=== PATIENT | female | born 2000 | race Caucasian/White ===

== ENCOUNTER 2020-03-31 19:30 | Inpatient (IN) ==
[2020-03-31] MEDS ORDERED: SODIUM CHLORIDE 0.9% 1000ML 1,000 ML IV ONE (20:44)
[2020-03-31 21:05] LABS: Basophils # (auto) 0.07 K/uL (0-0.2); Basophils % (auto) 0.9 %; Eosinophils # (auto) 0.35 K/uL (0-0.5); Eosinophils % (auto) 4.7 %; Hematocrit (blood only) 36.5 % (37-47); Immature Granulocytes # (auto) 0.01 K/uL (0.00-0.02); Immature Granulocytes % (auto) 0.1 %; Lymphocytes # (auto) 1.91 K/uL (1.2-3.4); Lymphocytes % (auto) 25.8 %; Mean Corpuscular Hemoglobin 24.5 pg (25-34); Mean Corpuscular Hgb Conc 32.9 g/dL (32-36); Mean Corpuscular Volume 74.6 fL (80-100); Mean Platelet Volume 10.6 fL (7.4-10.4); Monocytes # (auto) 0.84 K/uL (0.11-0.59); Monocytes % (auto) 11.3 %; Neutrophils # (auto) 4.23 K/uL (1.4-6.5); Neutrophils % (auto) 57.2 %; Platelet Count 227 K/uL (130-400); RDW Standard Deviation 38.1 fL (36.4-46.3); Red Blood Count 4.89 M/uL (4.2-5.4); White Blood Count 7.41 K/uL (4.8-10.8)
[2020-03-31 21:10] LABS: Appearance Urine Clear (Clear); Bacteria Urine Automated 2+ (Negative); Bilirubin Urine Negative (Negative); Blood Urine Negative (Negative); Color Urine Yellow; Epithelial Cell Urine Auto >30 /lpf (0-5); Glucose Urine UA Negative (Negative); Ketones Urine Trace (Negative); Leukocyte Esterase Urine Trace (Negative); Nitrite Urine Negative (Negative); RBC Urine Automated 0-4 /hpf (0-4); Specific Gravity Urine 1.028 (1.000-1.030); Urobilinogen Urine Negative (Negative); pH Urine 7.5 (4.5-7.5)
[2020-03-31 21:18] LABS: Protein Urine Negative (Negative); Sulfosalicylic Acid Urine Negative (Negative)
[2020-03-31 21:21] LABS: Albumin Level 3.9 gm/dl (3.4-5.0); BUN Creatinine Ratio 13.2 (10-20); Calcium 9.2 mg/dl (8.5-10.1); Creatinine Clr Calc Pharmacy 78.2 ml/min; Est GFR (African American) 105.9; Est GFR (Non-African American) 91.4; Potassium 3.2 mmol/L (3.5-5.1)
[2020-03-31 21:23] LABS: Bilirubin,Total 0.4 mg/dl (0.2-1); Globulin 4.1 gm/dl (2.5-4.0)
[2020-03-31 22:23] LABS: RBC Morphology Unremarkable
--- NOTE | 2020-03-31 23:18 | Emergency Department Note ---
Impression & Plan Abdominal pain, Constipation ED Provider Note NAME: DIANA SHELTON AGE: 19 SEX: F : 2000 ARRIVES VIA: Walk-In INFORMANT: Patient, ED PROVIDER(S): Raj Knox MD Chief Complaint: Abdominal pain, constipation HPI: Present concern for abdominal pain and constipation. The patient does have a known history of Crohn's disease status post partial colectomy and small bowel removal years ago. The patient is currently on Stelara. Patient states that she did notice some blood in the stool proximate 2 days prior and she has had increasing difficulty with having a full bowel movement. The patient did call the GI office today spoke with Lyric Gonzales the patient was advised on 2 separate occasions during 2 separate phone calls to take NSAID MiraLAX mag citrate as well as fiber supplement. Patient states that she did have some overflow diarrheal type symptoms but denied having a solid bowel movement to where she felt improved. The patient's pain is been somewhat crampy and lower. Patient denies any dysuria or hematuria. The patient does not take any blood thinning medications. Patient denies fevers, chills, chest pains, shortness of breath. Patient has had some mild nausea but without vomiting. LMP was approximately several weeks ago. No current vaginal bleeding or discharge. ROS: See HPI for pertinent positives and negatives. A total of 10 systems were reviewed and otherwise negative. Past medical history: See below Surgical history: See below Social history: See below Physical Exam: GENERAL: Wearing a mask. NAD, non-toxic. EYE EXAM: Normal conjunctiva. PERRL, no anisocoria and EOM's grossly intact w/o pain. NECK: Supple, no nuchal rigidity, no adenopathy, non-tender. No signs of meningismus. LUNGS: Clear to auscultation. Normal chest wall mechanics. HEART: NSR, no MRG. ABDOMEN: Abdomen soft, mild abdominal discomfort in the lower abdomen but without peritonitis, normo-active bowel sounds, no masses, no rebound or guarding. BACK: No CVA TTP. SKIN: No rashes and no bruising. UPPER EXTREMITIES: Upper extremities are grossly normal. LOWER EXTREMITIES: Grossly normal, no edema. NEURO EXAM: A&O x3, cranial nerves II-XII grossly intact, normal speech, moves all 4 extremities on command w/o issue. Differential diagnoses: Appendicitis, ovarian cyst, ovarian torsion, ectopic , TOA, PID, infections, diverticulitis, UTI, obstruction, mesenteric ischemia, aortic pathology, inflammatory bowel disease, renal colic, PUD, pancreatitis, biliary pathology, hernia, volvulus, constipation, as well as other pathologies. Course: Patient was seen and evaluated the bedside. Full history physical exam was performed. EKG: None Imaging Studies: Radiology results as stated below per my review in the radiologist's interpretation: ABDOMEN AND PELVIS CT WITH IV AND ORAL CONTRAST CT DOSE: 281.98 mGy.cm HISTORY: Acute right lower quadrant abdominal pain. History of Crohn's disease. crohn's flare, ab pain TECHNIQUE: Multiaxial CT images of the abdomen and pelvis were performed following the IV administration of 93 cc of Optiray 320 and oral contrast. A dose lowering technique was utilized adhering to the principles of ALARA. COMPARISON STUDY: CT enterography 07/01/2019 FINDINGS: Clear lung bases. No pneumatosis or pneumoperitoneum. The imaged i nferior cardiac chambers are unremarkable. The spleen, pancreas, adrenal glands, gallbladder and liver appear unremarkable. There is patency of the hepatic and portal veins. Kidneys are unremarkable. There is mild urinary bladder distention. Unremarkable uterus and adnexa. Aorta and IVC are unremarkable. No adenopathy. No bowel obstruction. Large amount of stool of the rectum which is distended t ransversely measuring up to 9.5 cm. Mild associated rectal wall thickening with mild perirectal stranding. Mild to moderate distention of the colon which measures up to 7.2 cm within the ascending colon. Postoperative changes of ileocecectomy with ileocolic anastomosis. Prominent lymph nodes of the right lower quadrant mesentery measuring up to 10 x 8 mm are likely reactive. No small bowel wall thickening, fistula or sinus tract. Soft tissues are unremarkable. Bones appear intact. IMPRESSION: 1. Interval postoperative changes of ileocecectomy with ileocolic anastomosis. No small bowel wall thickening, fistula or sinus tract. 2. Extensive fecal retention of the rectum resulting in rectal distention with rectal wall thickening and mild perirectal stranding, suspicious for stercoral proctitis. Additionally, there is mild to moderate distention of the large bowel. 3. No pneumoperitoneum. 4. Mildly prominent lymph nodes of the right lower quadrant mesentery, likely reactive. ACT 112: Negative or not required by law. The above report was generated using voice recognition software. It may contain grammatical, syntax or spelling errors. Electronically signed by: Jovanny Rae M.D. 04/01/2020 7:52 AM Dictated: 04/01/20742 Transcribed: 04/01/20742 Cardiac monitoring: An order was placed for continuous cardiac monitoring. The monitor shows a rate of 71 with sinus rhythm. MDM: She did present with concern for difficulty with having a bowel movement given the patient's prior history of Crohn's as well as surgery the patient did have blood work completed along with a CT of the abdomen pelvis with IV and p.o. contrast. White count and hemoglobin and platelet count is unremarkable. The patient's kidney function is unremarkable. Urinalysis does show bacteria but only there is likely contaminated sample as patient does not have nitrates or WBCs and the patient does not complain of any urinary symptoms. The patient CT does not show any inflammatory changes and no pneumoperitoneum but significant fecal retention. The patient was offered an enema which the patient did use along with some Anusol. The patient did have a bowel movement the patient's felt mildly improved but still concerned about the possibility of having a full bowel movement. I had spoken with Dr. Mitchell DO with gastroenterology who stated that they would be happy to see her in-house or as an outpatient where they could call the office later today. I did speak with the on-call hospitalist Dr. Naga DO and the patient was admitted to the medicine service. Past Med/Surg History Medical History Asthma exercise induced--inhaler prn Crohns disease Hypertension hx of; no meds Surgical History History of colectomy 08/14/2019 @ [facility] [place] History of colonoscopy History of esophagogastroduodenoscopy (EGD) History of tooth extraction Status post myringotomy with tube placement of both ears x2 Family History Father Colorectal cancer Ulcerative colitis Uncle Colorectal cancer Other No family history of adverse response to anesthesia Social History Smoking Status: Never smoker Second Hand Exposure: No; Hx Alcohol Use: No Hx Substance Use: No Preferred Language: Yoruba Communication Ability: Effective Certified Medical Transcriptionist Required: No Beliefs That Will Affect Care: None Current Living Situation: Other Current Living Situation Comment: Apartment with two roomates Feels Safe at Home: Yes Assistive Devices: None Allergies Allergies Allergy/AdvReac Type Severity Reaction Status Date / Time peanut Allergy Severe Anaphylaxis Verified 03/31/20 21:57 chickpeas Allergy Severe lip Uncoded 03/31/20 21:57 swelling green peas Allergy Severe Anaphylaxis Uncoded 03/31/20 21:57 Home Meds Home Medications Medication Instructions Recorded Confirmed albuterol sulfate 90 mcg/actuation 1 puffs INH Q6H PRN 01/31/19 03/31/20 aerosol inhaler hydrochlorothiazide 25 mg PO QAM 02/17/20 03/31/20 bisacodyl 5 mg PO DAILY PRN 03/31/20 03/31/20 Previous Rx's Medication Instructions Recorded ustekinumab 90 mg/mL subcutaneous 90 mg SQ Q8WK #1 ml 11/25/19 syringe docusate sodium 100 mg PO BID #60 cap 04/01/20 polyethylene glycol 3350 [Miralax] 17 g PO TID #0 g 04/01/20 Results & Data (ED) Vital Signs Vital Signs - 24 hr 03/31/20 19:32 03/31/20 20:57 03/31/20 22:22 Temperature 37.5 C Temperature Source Oral Pulse Rate 95 H Pulse Rate [Right Finger] 77 Pulse Rhythm [Right Finger] Regular Respiratory Rate 18 16 Respiratory Effort / Characteristics Non-Labored Spontaneous Non-Labored Spontaneous Respiratory Depth Normal Normal Blood Pressure 162/115 H Blood Pressure [Right Arm] 138/99 Blood Pressure Mean 130 Blood Pressure Mean [Right Arm] 112 Pulse Oximetry 99 99 99 Oxygen Delivery Method Room Air Room Air Room Air Sepsis Recent Fever Within 48 Hours No Sepsis New/Unexplained Change in Mental Status N/A Sepsis Action Taken by Nursing No Action Required 03/31/20 23:22 04/01/20 00:58 04/01/20 02:41 Temperature Temperature Source Pulse Rate Pulse Rate [Right Finger] 62 64 65 Pulse Rhythm [Right Finger] Respiratory Rate 18 16 16 Respiratory Effort / Characteristics Respiratory Depth Blood Pressure Blood Pressure [Right Arm] 165/102 H 128/76 135/84 Blood Pressure Mean Blood Pressure Mean [Right Arm] 123 93 101 Pulse Oximetry 96 99 98 Oxygen Delivery Method Room Air Room Air Room Air Sepsis Recent Fever Within 48 Hours Sepsis New/Unexplained Change in Mental Status Sepsis Action Taken by [facility] Medications Current Medication List: was personally reviewed by me Laboratory Data Attestation: I reviewed the patient's lab results. Result diagrams: 03/31/20 20:48 03/31/20 20:48 Lab Results 03/31/20 03/31/20 03/31/20 Range/Units 20:48 20:48 20:50 WBC 7.41 (4.8-10.8) K/uL RBC 4.89 (4.2-5.4) M/uL Hgb 12.0 (12.0-16.0) g/dL Hct 36.5 L (37-47) % MCV 74.6 L (80-100) fL MCH 24.5 L (25-34) pg MCHC 32.9 (32-36) g/dL RDW Std Deviation 38.1 (36.4-46.3) fL RDW Coeff of Adair 14.0 (11.5-14.5) % Plt Count 227 (130-400) K/uL MPV 10.6 H (7.4-10.4) fL Immature Gran % (Auto) 0.1 % Neut % (Auto) 57.2 % Lymph % (Auto) 25.8 % [place] % (Auto) 11.3 % Eos % (Auto) 4.7 % Baso % (Auto) 0.9 % Neut # (Auto) 4.23 (1.4-6.5) K/uL Lymph # (Auto) 1.91 (1.2-3.4) K/uL [place] # (Auto) 0.84 H (0.11-0.59) K/uL Eos # (Auto) 0.35 (0-0.5) K/uL Baso # (Auto) 0.07 (0-0.2) K/uL Immature Gran # (Auto) 0.01 (0.00-0.02) K/uL RBC Morphology Unremarkable Sodium 137 (136-145) mmol/L Potassium 3.2 L (3.5-5.1) mmol/L Chloride 103 (98-107) mmol/L Carbon Dioxide 27 (21-32) mmol/L Anion Gap 6.0 (3-11) BUN 12 (7-18) mg/dl Creatinine 0.90 (0.6-1.2) mg/dl Est Cr Clr Drug Dosing 78.2 ml/min Est GFR ( Amer) 105.9 Est GFR (Non-Af Amer) 91.4 BUN/Creatinine Ratio 13.2 (10-20) Glucose 84 (70-99) mg/dl Calcium 9.2 (8.5-10.1) mg/dl Phosphorus 3.5 (2.5-4.9) mg/dl Magnesium 2.4 (1.8-2.4) mg/dl Total Bilirubin 0.4 (0.2-1) mg/dl AST 17 (15-37) U/L ALT 20 (12-78) U/L Alkaline Phosphatase 52 (45-117) U/L Total Protein 8.0 (6.4-8.2) gm/dl Albumin 3.9 (3.4-5.0) gm/dl Globulin 4.1 H (2.5-4.0) gm/dl Albumin/Globulin Ratio 1.0 (0.9-2) Lipase 190 (73-393) U/L Urine Color Yellow Urine Appearance Clear (Clear) Urine pH 7.5 (4.5-7.5) Ur Specific [place] 1.028 (1.000-1.030) Urine Protein Negative (Negative) Urine Glucose (UA) Negative (Negative) Urine Ketones Trace H (Negative) Urine Blood Negative (Negative) Urine Nitrite Negative (Negative) Urine Bilirubin Negative (Negative) Urine Urobilinogen Negative (Negative) Ur Leukocyte Esterase Trace H (Negative) Urine WBC (Auto) 1-5 (0-5) /hpf Urine RBC (Auto) 0-4 (0-4) /hpf U Hyaline Cast (Auto) 5-10 H (0-5) /lpf U Epithel Cells (Auto) >30 H (0-5) /lpf Urine Bacteria (Auto) 2+ H (Negative) Administered Medications Discontinued Medications Dicyclomine HCl (Dicyclomine Hcl 10 Mg/Ml 2 Ml Amp/Vial) 20 mg IM NOW ONE Stop: 04/01/20 02:50 Last Admin: 04/01/20 02:59 Dose: 20 mg Documented by: [id number] Hydrochlorothiazide (Hydrochlorothiazide 25 Mg Tab) 25 mg PO QAM [place] Stop: 05/01/20 08:59 Last Admin: 04/01/20 08:33 Dose: 25 mg Documented by: [id number] Hydrocortisone (Hydrocortisone Acetate 25 Mg Supp) 25 mg MA ONE STA Stop: 04/01/20 01:37 Last Admin: 04/01/20 02:08 Dose: Not Given Documented by: [id number] Hydrocortisone (Hydrocortisone Hc 2.5% Crm 30gm Tube) 1 appln EXT NOW ONE Stop: 04/01/20 01:40 Last Admin: 04/01/20 01:45 Dose: 1 appln Documented by: [id number] Sodium Chloride (Nss 1000ml) 1,000 mls @ 999 mls/hr IV .Q1H1M ONE Stop: 03/31/20 21:44 Last Infusion: 03/31/20 21:55 Dose: 0 mls/hr Documented by: [id number] Admin: 03/31/20 20:54 Dose: 999 mls/hr Documented by: [id number] Sodium Chloride (Nss) 500 mls @ 100 mls/hr IV .Q5H [place] Stop: 05/01/20 02:59 Last Infusion: 04/01/20 07:21 Dose: 0 mls/hr Documented by: [id number] Admin: 04/01/20 02:59 Dose: 100 mls/hr Documented by: [id number] Sodium Chloride (Nss 1000ml) 1,000 mls @ 125 mls/hr IV .Q8H [place] Stop: 04/01/20 13:27 Last Admin: 04/01/20 06:07 Dose: 125 mls/hr Documented by: [id number] Ioversol (Ioversol 100ml) 100 ml IV ONCE ONE Stop: 04/01/20 00:10 Last Admin: 04/01/20 00:09 Dose: 93 ml Documented by: [id number] Ondansetron HCl (Ondansetron Inj 2 Mg/Ml 2 Ml Vial) 4 mg IV NOW STA Stop: 04/01/20 02:50 Last Admin: 04/01/20 05:27 Dose: Not Given Documented by: [id number] Potassium Chloride (Potassium Chloride 20 Meq Tabcr) 40 meq PO NOW STA Stop: 04/01/20 05:29 Last Admin: 04/01/20 08:33 Dose: 40 meq Documented by: [id number] Discharge Plan Visit Data Chief Complaint: Abdominal Pain Stated Complaint: ABD PAIN - CROHNS ED Provider: Raj Knox Discharge Problem: Abdominal pain, Constipation Patient Disposition: Admitted As Inpatient Condition: Good Discharge Instructions Interventions: ED Discharge Assessment Last Done: 04/01/20 05:02 Discharge Problem: Abdominal pain Qualifiers: Abdominal location: lower abdomen, unspecified Qualified Code(s): R10.30 - Lower abdominal pain, unspecified Constipation Qualifiers: Constipation type: unspecified constipation type Qualified Code(s): K59.00 - Constipation, unspecified
[2020-04-01] MEDS ORDERED: IOVERSOL 100ml IV ONE (00:09)
[2020-04-01] MEDS ORDERED: HYDROCORTISONE ACETATE 25 MG SUPP PR STA (01:36)
[2020-04-01] MEDS ORDERED: HYDROCORTISONE HC 2.5% CRM 30GM TUBE EXT ONE (01:39)
[2020-04-01] MEDS ORDERED: ONDANSETRON INJ 2 MG/ML 2 ML VIAL IV STA (02:49)
[2020-04-01] MEDS ORDERED: DICYCLOMINE HCL 10 MG/ML 2 ML AMP/VIAL IM ONE (02:49)
[2020-04-01] MEDS ORDERED: SODIUM CHLORIDE 0.9% 500 ML IV SCH (03:00)
--- NOTE | 2020-04-01 04:36 | History & Physical Report ---
Date of Service April 01, 2020 Assessment & Plan (1) Constipation: 19yo C female with history of Crohns disease, chronic constipation presenting with rectal pain, constipation. Symptoms mildly improved with enema provided in ER. CT with notable constipation. No evidence of acute Crohns flare. Patient afebrile, HD stable, no leukocytosis -Admit to medical floor -IVF and electrolyte repletion as needed -Continue bowel regimen - Dulcolax KS, Colace PO, Miralax PRN -Repeat enema if needed -GI consultation appreciated - patient is known to Dr. Velez and GI team -Zofran PRN nausea Present on Admission?: Yes (2) Hypertension: Blood pressure elevated upon arrival, now improved -Continue HCTZ 25mg po q daily -Continue to monitor Present on Admission?: Yes (3) Crohns disease: Chronic. Patient follows with GI -Stelara injection q 8 weeks. Patient is due for injection in 2 days -GI followup outpatient F/E/N - NSS at 125mL/hr x 1 liter, K repletion, check Mg and PO4 x 1, Regular diet as tolerated PPx - Low risk for DVT Code - Full Dispo - Admit to medical Present on Admission?: Yes History of Present Illness Chief Complaint: Abdomninal pain Primary Care Provider: Blaise Rodríguez MD Brandy Briggs is a pleasant 19yo C female with history of Crohns disease s/p partial colectomy, asthma, HTN presenting with abdominal pain, constipation. Symptoms began 2 days ago, constipation and blood passing per rectum. Patient has rectal pain and pressure, painful BM. She denies fevers, chills, body aches. Denies diarrhea, nausea and vomiting. No additional complaints at this time. Patient contacted her GI providers and was instructed to increase her bowel regimen - Colace, Fiber and magnesium citrate recommended. Patient did so with minimal improvement in symptoms. Enema administered in ER with some improvement ER course: NSS x 1500mL, Dicyclomine 20mg IM, Hydrocortisone external Allergies Allergy/AdvReac Type Severity Reaction Status Date / Time peanut Allergy Severe Anaphylaxis Verified 03/31/20 21:57 chickpeas Allergy Severe lip Uncoded 03/31/20 21:57 swelling green peas Allergy Severe Anaphylaxis Uncoded 03/31/20 21:57 Home Medications Home Medications Medication Instructions Recorded Confirmed Type albuterol sulfate 90 mcg/actuation 1 puffs INH Q6H PRN 01/31/19 03/31/20 History aerosol inhaler polyethylene glycol 3350 [Miralax] 17 g PO DAILY PRN 06/16/19 03/31/20 History ustekinumab 90 mg/mL subcutaneous 90 mg SQ Q8WK #1 ml 11/25/19 03/31/20 Rx syringe hydrochlorothiazide 25 mg PO QAM 02/17/20 03/31/20 History bisacodyl 5 mg PO DAILY PRN 03/31/20 03/31/20 History Past Med/Surg History Medical History Asthma exercise induced--inhaler prn Crohns disease Hypertension hx of; no meds Surgical History History of [place]lectomy 08[place]14[place]2019 [place] [facility] [place] History of colonoscopy History of esophagogastroduodenoscopy (EGD) History of tooth extraction Status post myringotomy with tube placement of both ears x2 Family History Father Colorectal cancer Ulcerative colitis Uncle Colorectal cancer Other No family history of adverse response to anesthesia Social History Smoking Status: Never smoker Second Hand Exposure: No; Hx Alcohol Use: Yes Alcohol type: hard liquor Hx Substance Use: No Preferred Language: Slovak Communication Ability: Effective Foundry Supervisor Required: No Beliefs That Will Affect Care: None Current Living Situation: Other Current Living Situation Comment: Lives with 2 roommates--[place] [employer] Student Feels Safe at Home: Yes Assistive Devices: None Review of Systems Review of Systems: All systems reviewed & are unremarkable except as noted in HPI & below Physical Exam Physical Exam: General: patient resting comfortably, NAD, non-toxic in appearance, AA&O x 4 Skin: warm, dry, intact, no rashes or lesions HEENT: NC/AT, PERRL, EOMI, anicteric sclera, conjunctiva without injection, external ear normal to inspection and nontender, nares patent, moist mucus membranes, dentition intact, no oropharyngeal lesions, neck supple, trachea midline, no LAD, no thyromegaly, no JVD Heart: +S1/S2, regular, no m/r/g Lungs: equal air entry bilaterally, no rales/rhonchi/wheezes Abd: +BS, soft, NT/ND, no masses/organomegaly/ascites Ext: warm, 2+ pulses in UE/LE bilaterally, no clubbing/cyanosis or edema Neuro: nonfocal, patient AA&O x 4, speech intact, no facial droop, moving all extremities on command with equal strength 5/5 Results & Data Results & Data ([facility]) Vital Signs (Past 12 Hours) Vital Signs Temp Pulse Pulse Resp BP BP Pulse Ox 04/01/20 02:41 65 16 135/84 98 04/01/20 00:58 64 16 128/76 99 03/31/20 23:22 62 18 165/102 H 96 03/31/20 22:22 77 16 138/99 99 03/31/20 20:57 99 03/31/20 19:32 37.5 C 95 H 18 162/115 H 99 Laboratory Results Lab Results 03/31/20 03/31/20 03/31/20 Range/Units 20:48 20:48 20:50 WBC 7.41 (4.8-10.8) K/uL RBC 4.89 (4.2-5.4) M/uL Hgb 12.0 (12.0-16.0) g/dL Hct 36.5 L (37-47) % MCV 74.6 L (80-100) fL MCH 24.5 L (25-34) pg MCHC 32.9 (32-36) g/dL RDW Std Deviation 38.1 (36.4-46.3) fL RDW Coeff of Adair 14.0 (11.5-14.5) % Plt Count 227 (130-400) K/uL MPV 10.6 H (7.4-10.4) fL Immature Gran % (Auto) 0.1 % Neut % (Auto) 57.2 % Lymph % (Auto) 25.8 % [place] % (Auto) 11.3 % Eos % (Auto) 4.7 % Baso % (Auto) 0.9 % Neut # (Auto) 4.23 (1.4-6.5) K/uL Lymph # (Auto) 1.91 (1.2-3.4) K/uL [place] # (Auto) 0.84 H (0.11-0.59) K/uL Eos # (Auto) 0.35 (0-0.5) K/uL Baso # (Auto) 0.07 (0-0.2) K/uL Immature Gran # (Auto) 0.01 (0.00-0.02) K/uL RBC Morphology Unremarkable Sodium 137 (136-145) mmol/L Potassium 3.2 L (3.5-5.1) mmol/L Chloride 103 (98-107) mmol/L Carbon Dioxide 27 (21-32) mmol/L Anion Gap 6.0 (3-11) BUN 12 (7-18) mg/dl Creatinine 0.90 (0.6-1.2) mg/dl Est Cr Clr Drug Dosing 78.2 ml/min Est GFR ( Amer) 105.9 Est GFR (Non-Af Amer) 91.4 BUN/Creatinine Ratio 13.2 (10-20) Glucose 84 (70-99) mg/dl Calcium 9.2 (8.5-10.1) mg/dl Total Bilirubin 0.4 (0.2-1) mg/dl AST 17 (15-37) U/L ALT 20 (12-78) U/L Alkaline Phosphatase 52 (45-117) U/L Total Protein 8.0 (6.4-8.2) gm/dl Albumin 3.9 (3.4-5.0) gm/dl Globulin 4.1 H (2.5-4.0) gm/dl Albumin/Globulin Ratio 1.0 (0.9-2) Lipase 190 (73-393) U/L Urine Color Yellow Urine Appearance Clear (Clear) Urine pH 7.5 (4.5-7.5) Ur Specific [place] 1.028 (1.000-1.030) Urine Protein Negative (Negative) Urine Glucose (UA) Negative (Negative) Urine Ketones Trace H (Negative) Urine Blood Negative (Negative) Urine Nitrite Negative (Negative) Urine Bilirubin Negative (Negative) Urine Urobilinogen Negative (Negative) Ur Leukocyte Esterase Trace H (Negative) Urine WBC (Auto) 1-5 (0-5) /hpf Urine RBC (Auto) 0-4 (0-4) /hpf U Hyaline Cast (Auto) 5-10 H (0-5) /lpf U Epithel Cells (Auto) >30 H (0-5) /lpf Urine Bacteria (Auto) 2+ H (Negative) Diagnostic Findings CT Abdomen and Pelvis with contrast: Per STAT-rad - no acute intra-abdominal inflammatory process. No bowel small dilatation. Post surgical changes of the right colon. Contrast distended colon with multiple air fluid levels. Large amount of stool in the rectum which may be constipation/obstipation. Appendix is not visualized. No evidence to suggest acute appendicitis. Several mildly enlarged right lower quadrant mesenteric lymph nodes. No calcified gallstones. No abdominal aortic aneurysm. Code Status & VTE Plan Code Status FULL PG Care Time/CCT Total # of Minutes Spent Total Time Spent with Patient: Total time spent is greater than 50% in coordination of care (as documented) at patient's floor/unit and/or counseling patient: Coding Level of Care Code 83103 Initial Inpt Care Lvl 2 Diagnoses Constipation K59.00 Constipation type: unspecified constipation type Hypertension I10 Hypertension type: essential hypertension Crohns disease K50.00 Gastrointestinal tract location: small intestine Digestive disease complication type: without complication (1) Hypertension Hypertension type: essential hypertension Qualified Code(s): I10 - Essential (primary) hypertension (2) Crohns disease Gastrointestinal tract location: small intestine Digestive disease complication type: without complication Qualified Code(s): K50.00 - Crohn's disease of small intestine without complications (3) Constipation Constipation type: unspecified constipation type Qualified Code(s): K59.00 - Constipation, unspecified
[2020-04-01 04:59] LABS: Magnesium 2.4 mg/dl (1.8-2.4); Phosphorus 3.5 mg/dl (2.5-4.9)
[2020-04-01] MEDS ORDERED: SODIUM CHLORIDE 0.9% 1000ML 1,000 ML IV SCH (05:28)
[2020-04-01] MEDS ORDERED: ACETAMINOPHEN 325 MG TAB PO PRN (05:28)
[2020-04-01] MEDS ORDERED: POTASSIUM CHLORIDE 20 MEQ TABCR PO STA (05:28)
[2020-04-01] MEDS ORDERED: POLYETHYLENE (MIRALAX) 17 GM PACK PO PRN (05:28)
[2020-04-01] MEDS ORDERED: DOCUSATE SODIUM 100 MG CAP PO PRN (05:28)
[2020-04-01] MEDS ORDERED: ONDANSETRON INJ 2 MG/ML 2 ML VIAL IV PRN (05:28)
[2020-04-01] MEDS ORDERED: bisacodyL 10 MG SUPP PR PRN (05:28)
[2020-04-01] MEDS ORDERED: bisacodyL 5 MG TABEC PO PRN (05:44)
--- NOTE | 2020-04-01 07:54 | CT Scan Report ---
ABDOMEN AND PELVIS CT WITH IV AND ORAL CONTRAST CT DOSE: 281.98 mGy.cm HISTORY: Acute right lower quadrant abdominal pain. History of Crohn's disease. crohn's flare, ab pa in TECHNIQUE: Multiaxial CT images of the abdomen and pelvis were performed following the IV administrat ion of 93 cc of Optiray 320 and oral contrast. A dose lowering technique was utilized adhering to th e principles of ALARA. COMPARISON STUDY: CT enterography 07/01/2019 FINDINGS: Clear lung bases. No pneumatosis or pneumoperitoneum. The imaged inferior cardiac chambers are unremarkable. The spleen, pancreas, adrenal glands, gallbladder and liver appear unremarkable. Th ere is patency of the hepatic and portal veins. Kidneys are unremarkable. There is mild urinary bladd er distention. Unremarkable uterus and adnexa. Aorta and IVC are unremarkable. No adenopathy. No bowel obstruction. Large amount of stool of the rectum which is distended transversely measuring u p to 9.5 cm. Mild associated rectal wall thickening with mild perirectal stranding. Mild to moderate distention of the colon which measures up to 7.2 cm within the ascending colon. Postoperative changes of ileocecectomy with ileocolic anastomosis. Prominent lymph nodes of the right lower quadrant mesen christine measuring up to 10 x 8 mm are likely reactive. No small bowel wall thickening, fistula or sinus tract. Soft tissues are unremarkable. Bones appear intact. IMPRESSION: 1. Interval postoperative changes of ileocecectomy with ileocolic anastomosis. No small bowel wall th ickening, fistula or sinus tract. 2. Extensive fecal retention of the rectum resulting in rectal distention with rectal wall thickening and mild perirectal stranding, suspicious for stercoral proctitis. Additionally, there is mild to mo derate distention of the large bowel. 3. No pneumoperitoneum. 4. Mildly prominent lymph nodes of the right lower quadrant mesentery, likely reactive. ACT 112: Negative or not required by law. The above report was generated using voice recognition software. It may contain grammatical, syntax o r spelling errors. Electronically signed by: Jovanny Rae M.D. 04/01/2020 7:52 AM
[2020-04-01] MEDS ORDERED: hydroCHLOROthiazide 25 MG TAB PO SCH (09:00)
--- NOTE | 2020-04-01 10:05 | Gastrointestinal Consultation ---
Date of Consultation April 01, 2020 Assessment & Plan (1) Constipation: -Discussed outpatient use of Miralax daily; Can titrate dosage. Would start with 17 gm TID and can increase/decrease from there as needed. -Colace 100 mg BID. -64 oz water daily minimum -Okay to use an enema outpatient if needed -Follow-up with our office in 2 weeks (telehealth). We discussed that if her constipation continues, we could consider a prescription medication like Linzess. -I have no GI objections to the patient being discharged as this issue is manageable as an outpatient. (2) Crohns disease: -Continue Stelara injections q 8 weeks. She reports she is going home to [place] to get her next injection. Supervising Physician Co-Signing Physician Notes Agree with KHUSHBU Quiñones Patient was discharged prior to my evaluation. History of Present Illness Reason for Consultation: Constipation Attending Physician: Mariana Garcia MD History of Present Illness Patient is a 19 yo female who presents to [facility] due to persistent constipation. She was seen 2 days ago in our outpatient GI clinic via telehealth. She has a history of Crohn's disease on Stelara therapy. She had a robotic ileocolonic resection in August 2019. She recently had a colonoscopy in February 2020 that indicated improvement from previous. There was no evidence of acute/active IBD. Her complaint 2 days ago is that she was struggling with acute constipation. She notes she was eating a different diet due to attending her sister's wedding and then noticed her bowel habits changed. She is not reporting any bleeding or severe abdominal pain. She notes that she feels like she is incompletely evacuating her bowels. She has tried Miralax without success. She was instructed to do a bowel cleanse with 1 bottle of Magnesium Citrate. She called back to the office the next morning to report that it did not change her symptoms. Given her recent surgical history, an abdominal xray was obtained and indicated constipation. She was advise to do a bowel prep with an entire 238 gm bottle of Miralax, along with Gatorade and 4 Dulcolax tablets. She called back to the triage nurse in our clinic within several hours to report that did not help. She reported rectal pain at that time. A CT was advised, however office hours had ended so patient presented to the ED. A CT indicated stercoral proctitis/constipation. There is no concern for acute issues with her IBD. She was given an enema which helped then was apparently subsequently admitted to the hospital for her constipation. At the time of my visit this AM, she is comfortably resting in bed with Mom in the room. She reports she is feeling better and wants to be discharged home. She reports she has continued to move her bowels (loose/watery stool is reportedly all that remains). She offers no further new complaints. She is returning home to [place] to receive her next Stelara injection for her Crohn's Disease which she receives every 8 weeks. Allergies Allergy/AdvReac Type Severity Reaction Status Date / Time peanut Allergy Severe Anaphylaxis Verified 03/31/20 21:57 chickpeas Allergy Severe lip Uncoded 03/31/20 21:57 swelling green peas Allergy Severe Anaphylaxis Uncoded 03/31/20 21:57 Home Medications Home Medications Medication Instructions Recorded Confirmed Type albuterol sulfate 90 mcg/actuation 1 puffs INH Q6H PRN 01/31/19 03/31/20 History aerosol inhaler ustekinumab 90 mg/mL subcutaneous 90 mg SQ Q8WK #1 ml 11/25/19 03/31/20 Rx syringe hydrochlorothiazide 25 mg PO QAM 02/17/20 03/31/20 History bisacodyl 5 mg PO DAILY PRN 03/31/20 03/31/20 History docusate sodium 100 mg PO BID #60 cap 04/01/20 Rx polyethylene glycol 3350 [Miralax] 17 g PO TID #0 g 04/01/20 03/31/20 Rx Patient History Medical History (Updated 04/01/20 @ 04:34 by Sandi Nielson DO) Asthma exercise induced--inhaler prn Crohns disease Hypertension hx of; no meds Surgical History History of co[place] [facility] [place] History of colonoscopy History of esophagogastroduodenoscopy (EGD) History of tooth extraction Status post myringotomy with tube placement of both ears x2 Family History Father Colorectal cancer Ulcerative colitis Uncle Colorectal cancer Other No family history of adverse response to anesthesia Social History Smoking Status: Never smoker Second Hand Exposure: No; Hx Alcohol Use: No Hx Substance Use: No Preferred Language: Fijian Communication Ability: Effective 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 Beliefs That Will Affect Care: None Current Living Situation: Other Current Living Situation Comment: Apartment with two roomates Feels Safe at Home: Yes Assistive Devices: None Review of Systems Constitutional: no fever and no chills Eyes: no problem reported Ear, Nose, Mouth, Throat: no problem reported Respiratory: no cough and no dyspnea Cardiovascular: no chest pain Gastrointestinal: + change in bowel habits (improving); no abdominal pain and no blood in stools Musculoskeletal: no problem reported Integumentary: no problem reported Psychiatric: no problem reported Hematologic / Lymphatic: no unexplained weight loss Physical Exam Constitutional: well developed Eyes: no conjunctival abnormality Neck: normal visual inspection Respiratory: normal respiratory effort Cardiovascular: Extremities: no edema Gastrointestinal (Abdomen): Inspection/Auscultation: abdomen normal to inspection Musculoskeletal: Head/Neck/Chest: normocephalic Skin: no rashes Psychiatric: A+Ox3, euthymic affect Results & Data ([facility]) Vital Signs (Past 12 Hours) Vital Signs Temp Pulse Pulse Resp BP Pulse Ox 04/01/20 07:50 36.7 C 71 18 131/71 97 04/01/20 05:29 36.8 C 62 16 124/73 99 04/01/20 04:30 60 16 113/67 99 04/01/20 02:41 65 16 135/84 98 04/01/20 00:58 64 16 128/76 99 03/31/20 23:22 62 18 165/102 H 96 03/31/20 22:22 77 16 138/99 99 PG Care Time/CCT Total # of Minutes Spent Total Time Spent with Patient: Total time spent is greater than 50% in coordination of care (as documented) at patient's floor/unit and/or counseling patient: Coding Level of Care Code 69795 Inpt Consult Level 4 Diagnoses Constipation K59.00 Constipation type: unspecified constipation type Crohns disease K50.00 Digestive disease complication type: without complication Gastrointestinal tract location: small intestine (1) Crohns disease Digestive disease complication type: without complication Gastrointestinal tract location: small intestine Qualified Code(s): K50.00 - Crohn's disease of small intestine without complications (2) Constipation Constipation type: unspecified constipation type Qualified Code(s): K59.00 - Constipation, unspecified
--- NOTE | 2020-04-01 11:20 | Discharge Summary ---
Date of Service April 01, 2020 Admission HPI Per Admitting Provider Brandy Briggs is a pleasant 19yo C female with history of Crohns disease s/p partial colectomy, asthma, HTN presenting with abdominal pain, constipation. Symptoms began 2 days ago, constipation and blood passing per rectum. Patient has rectal pain and pressure, painful BM. She denies fevers, chills, body aches. Denies diarrhea, nausea and vomiting. No additional complaints at this time. Patient contacted her GI providers and was instructed to increase her bowel regimen - Colace, Fiber and magnesium citrate recommended. Patient did so with minimal improvement in symptoms. Enema administered in ER with some improvement ER course: NSS x 1500mL, Dicyclomine 20mg IM, Hydrocortisone external Principal Diagnosis Constipation, fecal impaction Discharge Exam Constitutional WD/WN, vitals as above Eyes + anicteric sclerae Neck trachea midline, no thyromegaly Respiratory normal respiratory effort, lungs clear to auscultation Cardiovascular RRR, no murmur, no edema Chest (Breasts) Chest: normal inspection of chest Gastrointestinal (Abdomen) normal bowel sounds, soft, nontender, no hepatosplenomegaly Rectal Exam: no hemorrhoids Musculoskeletal Extremities: extremities normal to inspection; no cyanosis and no clubbing Skin no rashes, warm and dry Neurologic moves all extremities and awake; no focal motor deficits Psychiatric A+Ox3, euthymic affect Lymphatic no lymphedema Discharge Data Allergies Allergy/AdvReac Type Severity Reaction Status Date / Time peanut Allergy Severe Anaphylaxis Verified 03/31/20 21:57 chickpeas Allergy Severe lip Uncoded 03/31/20 21:57 swelling green peas Allergy Severe Anaphylaxis Uncoded 03/31/20 21:57 Consultations 04/01/20 02:49 ED Decision to Admit Stat 04/01/20 05:28 Consult Gastroenterology Routine Ordered Studies 03/31/20 20:44 CT abd pelvis oral and IV con Urgent Hospital Course (1) Constipation: 19yo C female with history of Crohns disease, chronic constipation presenting with rectal pain, constipation. Symptoms mildly improved with enema provided in ER. CT with notable constipation and fecal impaction. No evidence of acute Crohns flare. Patient afebrile, HD stable, no leukocytosis -Admit to medical floor and after receiving Dulcolax suppository, reports having a large bowel movement followed by liquid stool Rectal pain is significantly improved and she feels stable for discharge home Was tolerating clear liquids diet-can advance as tolerated after discharge -IVF were provided -Continue bowel regimen at home with MiraLAX 17 g p.o. 3 times daily, docusate 100 mg p.o. twice daily GI consultation [id number] in 2 weeks (2) Hypertension: Blood pressure elevated upon arrival, now improved -Continue HCTZ 25mg po q daily -Continue to monitor as an outpatient (3) Crohns disease: Chronic. Patient follows with GI -Stelara injection q 8 weeks. Patient is due for injection tomorrow -GI followup outpatient Disposition-stable for discharge home Total Time Total Time Spent Total Time Spent (In Minutes): 35 minutes Total Time Includes: Examination of the Patient, Discharge Planning and Medication Reconciliation Discharge Plan Discharge Items Patient Disposition: Home - Self-Care Reason For Visit: CROHNS DISEASE, CONSTIPATION Discharge Diagnosis: Constipation Condition on Discharge: Good Activity: Resume your previous activity Non-emergency contact: Primary Care Provider and Supervisor Shuttle Preparation Call non-emergency contact if: you have any medication questions, your symptoms worsen and your pain is not controlled Follow-up/Referrals: Lryic Gonzales PA-C [Physician Pick Remover] - 04/13/20 11:00 am (APPT WILL BE [email or web address]) Blaise Rodríguez MD [Primary Care Provider] - (SPOKE WITH PATIENT AND HER MOTHER AND THEY WANT TO MAKE A F/U APPT WITH PCP DUE TO THE DOCTOR BEING IN [place]. THEY NEED TO SCHEDULE AROUND SCHOOL.) Diet: Regular Addtl Attending Provider Instructions: Please continue the bowel regimen as discussed. Follow-up with your GI provider and PCP within 1 to 2 weeks. Pending Studies at Discharge: No Stand-Alone Forms: My [facility] Medications and DC Order Prescriptions: New docusate sodium 100 mg Capsule 100 mg PO BID Qty: 60 RF: 0 Continued Stelara 90 mg/mL syringe 90 mg SQ Q8WK Qty: 1 RF: 6 albuterol sulfate [Ventolin HFA] 90 mcg/actuation HFA aerosol inhaler 1 puffs INH Q6H PRN (Reason: Shortness Of Breath) RF: 0 hydrochlorothiazide 25 mg Tablet 25 mg PO QAM RF: 0 bisacodyl 5 mg Tablet 5 mg PO DAILY PRN (Reason: Constipation) RF: 0 Changed polyethylene glycol 3350 [Miralax] 17 gram/dose Powder 17 g PO TID Qty: 0 RF: 0 Discharge Orders: Discharge Order (Routine); Ordered 04/01/20 Ordered By: Mariana Garcia Admission Data Admit Date/Time: 04/01/20 04:18 Attending Provider: Mariana Garcia Admit Provider: Sandi Nielson Primary Care Provider: Blaise Rodríguez Other Providers: Carlos Velez ; Sandi Nielson Coding Level of Care Code D/C Day Management >30 mins Diagnoses Constipation K59.00 Constipation type: unspecified constipation type Hypertension I10 Hypertension type: essential hypertension Crohns disease K50.00 Digestive disease complication type: without complication Gastrointestinal tract location: small intestine
== END 2020-04-01 12:07 | disposition home or self-care (01) | DRG 392 ==
LOC: ED 19:30 → SUATTDRO 04-01 04:18 → 3N 04-01 04:18